=== PATIENT | male | born 1975 | race Caucasian/White ===

== ENCOUNTER 2017-09-09 11:22 | Emergency (ER) | payer OTHER ==
[2017-09-09 11:28] VITALS: BP 137/80
--- NOTE | 2017-09-09 11:51 | ER Document Report ---
HPI - HPI Pain Level: 5 Notes: Patient is a 41-year-old male with no significant past medical history presents to the ED complaining of right dorsal foot pain 2 days. Patient states that he has been using his foot often, but does not recall any one particular injury. Patient states that the pain does not radiate. He denies any drug allergies. He has not had any medicines for symptoms at this time and does not want any Tylenol or Motrin. No other concerns or complaints at this time. Denies any headache, fever, URI, sore throat, chest pain, palpitations, syncope , cough, shortness of breath, wheeze, dyspnea, abdominal pain, nausea/vomiting/ diarrhea, urinary retention, dysuria, hematuria, loss of control of bowel or bladder, numbness/tingling, muscle paralysis/weakness, or rash. - ROS Systems Reviewed and Negative: Yes All other systems reviewed and negative Past Medical History - Social History Smoking Status: Never Smoker Family History: Reviewed & Not Pertinent Vertical Provider Document - CONSTITUTIONAL Agree With Documented VS: Yes Notes: PHYSICAL EXAMINATION: GENERAL: Well-appearing, well-nourished and in no acute distress. LUNGS: Breath sounds clear to auscultation bilaterally and equal. No wheezes rales or rhonchi. HEART: Regular rate and rhythm without murmurs, rubs, gallops. Musculoskeletal: Rt foot/ankle: FROM to passive/active. Strength 5+/5. N/V intact distal. + tenderness to the dorsal foot and area of the ATFL. No bony tenderness of the ankle. Achilles intact. Extremities: No cyanosis, clubbing, or edema b/l. Peripheral pulses 2+. Capillary refill less than 3 seconds. NEUROLOGICAL: Normal speech, limping gait. Normal sensory, motor exams PSYCH: Normal mood, normal affect. SKIN: Warm, Dry, normal turgor, no rashes or lesions noted. - INFECTION CONTROL TRAVEL OUTSIDE OF THE [place] IN LAST 30 DAYS: No Course - Re-evaluation Re-evalutation: 09/09/17 12:20 Patient is an afebrile, well-hydrated, 41-year-old male who presents to the ED with right dorsal foot pain with a dorsal calcaneal spur noted on x-ray. Vitals are acceptable. PE is otherwise unremarkable for any neurovascular compromise, obvious tendon/ligament rupture, obvious fracture/dislocation, septic joint. See x-ray result. No other labs or imaging warranted at this time. Patient already has an Russel wrap. I will send him home with a prescription for Voltaren gel. Conservative measures otherwise for symptoms. Recheck with your PCM in 3-5 days. Consider consult podiatry. Return to the ED with any worsening/concerning symptoms otherwise as reviewed in discharge. Patient is in agreement. - Vital Signs Vital signs: Temp Pulse Resp BP Pulse Ox 98.5 F 60 18 137/80 H 100 09/09/17 11:28 09/09/17 11:28 09/09/17 11:28 09/09/17 11:28 09/09/17 11:28 Discharge - Discharge Clinical Impression: Right foot pain Condition: Stable Disposition: HOME, SELF-CARE Additional Instructions: Rest, Ice, Compression, Elevation Tylenol/ibuprofen as needed Light stretches daily Strength exercises as able Moist heat and massage may help F/u with your PCP in 3-5 days for a recheck Consider consult(s) with Orthopedics/physical therapy/podiatry for ongoing/ worsening symptoms Return to the ED with any worsening symptoms and/or development of fever, headache, chest pain, palpitations, syncope, shortness of breath, trouble breathing, abdominal pain, n/v/d, muscle weakness/paralysis, numbness/tingling, swelling, redness, or other worsening symptoms that are concerning to you. Prescriptions: Diclofenac Sodium [Voltaren] 4 gm TP QID PRN #100 gel..gm. PRN Reason: Forms: Elevated Blood Pressure Referrals: ARIAN JUNIOR MD [PEDIATRICS] - Follow up as needed WILFREDO ARRIAGA DPM [ACTIVE STAFF] - Follow up in 3-5 days
--- NOTE | 2017-09-09 12:18 | RADIOLOGY REPORT (SQ) ---
EXAM DESCRIPTION: FOOT RIGHT COMPLETE COMPLETED DATE/TIME: 09/09/2017 11:57 am REASON FOR STUDY: right foot pain COMPARISON: None. NUMBER OF VIEWS: Three views. TECHNIQUE: AP, lateral and oblique radiographic images acquired of the right foot. LIMITATIONS: None. FINDINGS: MINERALIZATION: Normal. BONES: No fracture dislocation. Dorsal calcaneal spur. JOINTS: No effusions. SOFT TISSUES: No soft tissue swelling. No foreign body. OTHER: No other significant finding. IMPRESSION: Dorsal calcaneal spur. No acute abnormality. TECHNICAL DOCUMENTATION: JOB ID: [id number]- All Rights Reserved Reading location - IP/workstation name: [email or web address]
== END 2017-09-09 12:10 | disposition home or self-care (01) ==
LOC: ER 11:22
DX: M79.671 Pain in right foot (principal)
CPT/HCPCS: 99283

== ENCOUNTER 2018-07-01 17:11 | Emergency (ER) | payer OTHER ==
[2018-07-01] MEDS ORDERED: MORPHINE SULFATE 10 MG/ML INJ IM ONE (17:52)
--- NOTE | 2018-07-01 18:11 | ER Document Report ---
ED General - General Chief Complaint: Puncture Wound Stated Complaint: NAIL IN ARM Time Seen by Provider: 07/01/18 17:46 Primary Care Provider: ARIAN JUNIOR MD [Primary Care Provider] - Notes: Patient is a 42-year-old male that presents to the emergency department for chief complaint of left forearm nail injury from a nail gun. Patient states about 45 minutes prior to ED arrival, he was working on a fence, and his arm had actually had a nail gun that his coworker was holding. The nail gun had shot into the midportion of his left forearm. The patient is right-handed. He is not aware of his prior tetanus. He currently rates his pain as a 4 out of 10 describes it as an aching and constant pain, worse with moving his hands. Denies any numbness or tingling or weakness in his hand. Denies any other injuries. Patient reports that the nail was a 2 inch ring shank nail. Past Medical History: Denies chronic medical conditions Past Surgical History: Denies surgical history Social History: Denies tobacco, or drug use, admits to occasional alcohol use. Family History: Reviewed and noncontributory for presenting illness Allergies: Reviewed, see documented allergy list. REVIEW OF SYSTEMS: Other than noted above, the 12 point review of systems was reviewed with the patient and were negative, all pertinent findings are included in the HPI. PHYSICAL EXAMINATION: Vital signs reviewed, nursing noted reviewed. GENERAL: Well-appearing, well-nourished and in no acute distress. HEAD: Atraumatic, normocephalic. EYES: Eyes appear normal, extraocular movements intact, sclera anicteric, conjunctiva are normal. ENT: nares patent, oropharynx clear without exudates. Moist mucous membranes. NECK: Normal range of motion, supple without lymphadenopathy LUNGS: Breath sounds clear to auscultation bilaterally and equal. No wheezes rales or rhonchi. HEART: Regular rate and rhythm without murmurs ABDOMEN: Soft, nontender, normoactive bowel sounds. No rebound, guarding, or rigidity. No masses appreciated. EXTREMITIES: The left forearm has skin that tented inward, with a nail head that is exposed on the skin, there is tenderness with palpation to the area, patient is neurovascularly intact, his distal radial pulse is +2/4, cap refill is less than 3 seconds in all digits. He is able to move all digits, he does have pain with flexion during fist making on the left. The rest of his extremity is grossly unremarkable. There is no active bleeding at this time. NEUROLOGICAL: No focal neurological deficits. Moves all extremities spontaneously Motor and sensory grossly intact on exam. PSYCH: Normal mood, normal affect. SKIN: Warm, Dry, normal turgor, no rashes or lesions noted on exposed skin TRAVEL OUTSIDE OF THE [place] IN LAST 30 DAYS: No - Related Data Allergies/Adverse Reactions: No Known Allergies Allergy (Verified 07/01/18 17:11) Past Medical History - Social History Smoking Status: Never Smoker Frequency of alcohol use: Occasional Drug Abuse: None Family History: Reviewed & Not Pertinent Patient has suicidal ideation: No Patient has homicidal ideation: No Renal/ Medical History: Denies: Hx Peritoneal Dialysis Physical Exam - Vital signs Vitals: Temp Pulse Resp BP Pulse Ox 97.9 F 63 16 122/78 100 07/01/18 17:19 07/01/18 17:19 07/01/18 17:19 07/01/18 17:19 07/01/18 17:19 Course - Re-evaluation Re-evalutation: Patient seen and examined vital signs reviewed. X-rays ordered of the forearm, demonstrated a fracture of the midshaft of the ulna, with a nail embedded in both the ulna, and the tip of it embedded in the radius. Patient was treated with IM morphine, and given a tetanus update, he is also had an IV placed given a dose of IV 1 g of IV Ancef, technically open fracture, and given a dose of IV Toradol. Patient was offered a sling, to give some support, but stated it was making it worse, I discussed with him placing a splint, however since he was being transferred to trauma center, they will need to take it down and evaluate the patient's wound, and he is declining any splint at this time, which I felt was reasonable, and his fracture did not appear unstable at this time. The patient was re-evaluated and was stable, pain was improved Evaluation was most consistent with nail injury, with fracture of the ulna. Results were discussed with the patient at this point after careful considera tion I feel that that patient should be transferred to [facility], discussed with Dr. britton with trauma due to lack of orthopedic services at this hospital at this time, and need for evaluation from orthopedic surgeon and trauma team that could manage this patient's case. This was discussed with the patient that it is in the best interest for their care to be transferred, the risks and benefits of transfer were discussed, including but not limited to clinical deterioration during transport, respiratory distress, and potential for traumatic injuries. Patient agreed with this plan of care. *Note is created using voice recognition software and may contain spelling, syntax or grammatical errors. Forearm X-Ray 07/01/18 17:51 IMPRESSION: 1. Oblique nondisplaced fracture through the midshaft of the ulna at the level of the nail. 2. Nail traverses the mid ulna with the distal tip appearing to be imbedded within the mid radial shaft. - Vital Signs Vital signs: Temp Pulse Resp BP Pulse Ox 97.9 F 63 16 122/78 100 07/01/18 17:19 07/01/18 17:19 07/01/18 17:19 07/01/18 17:19 07/01/18 17:19 Discharge - Discharge Clinical Impression: Puncture wound of skin from metal nail Left ulnar fracture Qualifiers: Encounter type: initial encounter Ulna location: shaft Fracture type: open Open fracture type: open type I or II Fracture morphology: unspecified fracture morphology Qualified Code(s): S52.202B - Unspecified fracture of shaft of left ulna, initial encounter for open fracture type I or II Condition: Stable Disposition: [facility] Instructions: Fractured Radius ([facility]) Additional Instructions: Please have a safe regional [employer] truck driver to take you to an emergency department, as you will need treatment for this condition, that were not able to provide at this time. Referrals: ARIAN JUNIOR MD [Primary Care Provider] -
[2018-07-01] MEDS ORDERED: DIPH/PERTUSS(ACELL)/TETANUS VAC/PF 0.5 ML SYR (>=10YO) IM ONE (18:12)
--- NOTE | 2018-07-01 18:19 | RADIOLOGY REPORT (SQ) ---
EXAM DESCRIPTION: FOREARM LEFT COMPLETED DATE/TIME: 07/01/2018 6:05 pm REASON FOR STUDY: nail in forearm COMPARISON: None. NUMBER OF VIEWS: Two views. TECHNIQUE: Two radiographic images acquired of the left forearm, including elbow and wrist in at [address] one projection. LIMITATIONS: None. FINDINGS: MINERALIZATION: Normal. BONES: Oblique nondisplaced fracture through the midshaft of the ulna. No additional fracture is vis ualized. Alignment is normal. SOFT TISSUES: Radiopaque nail traverses the mid ulna at the level the fracture with the tip of the me dial appearing to be imbedded within the midshaft of the radius to. No soft tissue gas. OTHER: No other significant finding. IMPRESSION: 1. Oblique nondisplaced fracture through the midshaft of the ulna at the level of the nail. 2. Nail traverses the mid ulna with the distal tip appearing to be imbedded within the mid radial sha ft. TECHNICAL DOCUMENTATION: JOB ID: [id number] [employer]- All Rights Reserved Reading location - IP/workstation name: [email or web address]
[2018-07-01] MEDS ORDERED: KETOROLAC TROMETHAMINE INJ/PF 30 MG/1 ML SDV IV ONE (18:44)
[2018-07-01] MEDS ORDERED: CEFAZOLIN 1 GM/D5W RTU 1 GM/50 ML RTUPB IV ONE (18:44)
[2018-07-01 19:42] VITALS: BP 148/84
== END 2018-07-01 20:00 | disposition short-term general hospital (02) ==
LOC: ER 17:11
DX: S52.235 Nondisplaced oblique fracture of shaft of left ulna (principal); W29.4XXA Contact with nail gun, initial encounter; Y93.89 Activity, other specified
CPT/HCPCS: 73090; 90715; J0690; J1885; J2270